=== PATIENT | female | born 1980 | race Hispanic/Latino ===

== ENCOUNTER 2022-07-23 21:10 | Emergency (ER) | payer MEDICAID, OTHER ==
[~2022-07-23] VITALS: Ht 160 cm; Wt 93.9 kg
[2022-07-23] MEDS ORDERED: DEXAMETHASONE SOD PHOSPHATE 4 MG/ML 1ML VIAL IM ONE (22:30)
[2022-07-23] MEDS ORDERED: CEFTRIAXONE 1G VIAL IM ONE (22:30)
[2022-07-23] MEDS ORDERED: KETOROLAC 60 MG VIAL (30MG/ML) IM ONE (22:30)
[2022-07-23] MEDS ORDERED: PSEU120T62 PO (22:49)
[2022-07-23] MEDS ORDERED: IBUP-2070 PO (22:49)
[2022-07-23] MEDS ORDERED: CEFD300C3 PO (22:49)
[2022-07-23] MEDS ORDERED: PHEN118L19 PO (22:49)
[2022-07-23] MEDS ORDERED: IPRA3AMP24 IH (22:49)
[2022-07-23 22:52] VITALS: BP 140/84
== END 2022-07-23 23:00 | disposition home or self-care (01) ==
LOC: EDH 21:10
DX: J02.0 Streptococcal pharyngitis (principal); J20.9 Acute bronchitis, unspecified; E11.9 Type 2 diabetes mellitus without complications; Z20.822 Contact with and (suspected) exposure to COVID-19
CPT/HCPCS: 99284; 87635; 87880; 87804 ×2; 96372; J1100; C9803; J0696; J1885

== ENCOUNTER 2024-07-17 08:55 | Emergency (ER) | payer BC, MEDICAID ==
[~2024-07-17] VITALS: Ht 160 cm; Wt 98.0 kg
[~2024-07-17 08:55] MED LIST: CEFD300C3 PO; IBUP-2070 PO; IPRA3AMP24 IH; PHEN118L19 PO; PSEU120T62 PO
[2024-07-17 09:12] VITALS: BP 132/65; PULSE 84; RESP 20; TEMP 99; O2SAT 98
[2024-07-17 09:19] LABS: RAPID GROUP A STREP negative (NEGATIVE)
[2024-07-17 09:23] LABS: SARS-CoV-2, RNA, NAAT NEGATIVE SARS CoV-2 (NEGATIVE)
[2024-07-17 09:29] LABS: INFLUENZA TYPE A Negative For Type A (NEGATIVE); INFLUENZA TYPE B Negative For Type B (NEGATIVE)
[2024-07-17] MEDS ORDERED: AMOX500C2 PO (09:34)
[2024-07-17] MEDS ORDERED: FLUT16H NS (09:35)
--- NOTE | 2024-07-17 09:35 | ERN ---
General Chief Complaint: Sore Throat Stated Complaint: SORE THROAT Time Seen by MD: 08:57 Source: patient History of Present Illness Initial Comments PATIENT IS A 43-YEAR-OLD FEMALE COMING IN TO BE EVALUATED FOR URI SYMPTOMS. URI SYMPTOMS INCLUDE NASAL CONGESTION SINUS PRESSURE AND SORE THROAT. PATIENT STATES THAT THESE SYMPTOMS BEGAN SEVEN DAYS AGO. Allergies: Coded Allergies: No Known Allergies (Unverified Allergy, Unknown, 07/23/22) Home Meds Active Scripts Ipratropium/Albuterol Sulfate (Iprat-Albut 0.5-3(2.5) mg/3 ml) 3 Ml Ampul.neb, 3 ML IH Q4HPRN PRN for SHORTNESS OF BREATH for 30 Days, #90 VIAL Prov:KAITLIN BUTLER 07/23/22 Phenylephrine/Diphenhydramine (Dimetapp Cold & Congest Liquid) 118 Ml Liquid, 10 ML PO TID for 5 Days, #120 ML Prov:KAITLIN BUTLER 07/23/22 Pseudoephedrine HCl (Sudafed 12 Hour) 120 Mg Tablet.er, 120 MG PO BID for 5 Days, #10 TAB Prov:KAITLIN BUTLER 07/23/22 Ibuprofen (Ibuprofen) 600 Mg Tablet, 600 MG PO Q6H PRN for PAIN, #15 TAB Prov:KAITLIN BUTLER 07/23/22 Cefdinir (Cefdinir) 300 Mg Capsule, 300 MG PO BID for 10 Days, #20 CAP Prov:KAITLIN BUTLER 07/23/22 Past Medical History Past Medical History: Diabetes-Type II, Hypertension Past Surgical History: Tonsillectomy, ROS Dictation CONSTITUTIONAL: NO CHILLS, NO FEVER, NO WEAKNESS, NO DIAPHORESIS, NO MALAISE. HEAD/FACE: NO SIGNS OF TRAUMA. EENT: NO EYE PAIN, NO BLURRED VISION, NO TEARING, NO DOUBLE VISION, NO EAR PAIN, NO EAR DISCHARGE, NO NOSE PAIN, NO NASAL CONGESTION, NO THROAT PAIN, NO THROAT SWELLING, NO MOUTH PAIN. RESPIRATORY: NO COUGH, NO ORTHOPNEA, NO SOB, NO STRIDOR, NO WHEEZING. CARDIOVASCULAR: NO CHEST PAIN, NO EDEMA, NO PALPITATIONS, NO SYNCOPE. GASTROINTESTINAL/ABDOMINAL: NO ABDOMINAL PAIN, NO CONSTIPATION, NO DIARRHEA, NO NAUSEA, NO VOMITING. GENITOURINARY: NO ABNORMAL DISCHARGE, NO DYSURIA, NO FREQUENT URINATION, NO HEMATURIA. NO COMPLAINTS OF PAIN IN THE GENITALS. MUSCULOSKELETAL: NO BACK PAIN, NO GOUT, NO JOINT PAIN, NO JOINT SWELLING, NO MUSCLE PAIN, NO MUSCLE STIFFNESS, NO NECK PAIN. INTEGUMENTARY: NO CHANGE IN COLOR, NO CHANGE IN HAIR/NAILS, NO DRYNESS, NO LESION, NO LUMPS, NO RASH. NEUROLOGICAL/PSYCH: NO ANXIETY, NOT DEPRESSED, NO EMOTIONAL PROBLEM, NO HEADACHE, NO NUMBNESS, NO PRE-EXISTING DEFICIT, NO HISTORY OF SEIZURES, NO TREMORS, NO WEAKNESS. HEMATOLOGIC/LYMPHATIC: NOT ANEMIC, NO HISTORY OF BLOOD CLOTS, NO APPARENT BLEEDING, NO BRUISING, GLANDS NOT SWOLLEN. ALL SYSTEMS NEGATIVE, EXCEPT NOTED. Physical Exam Physical Exam Dictation VITAL SIGNS: REVIEWED. GENERAL APPEARANCE: ALERT, ORIENTED X3, NO ACUTE DISTRESS, OBESE. HEAD AND FACE: NON-TRAUMATIC. EYES: PERRL, PINK CONJUNCTIVAS, EYELID NO TRAUMA, ANTERIOR CHAMBER CLEAR. EARS: PINNAS INTACT AND NO SIGNS OF TRAUMA OR ERYTHEMA. EAR CANALS CLEAR AND NO DISCHARGE. TMS NO ERYTHEMA. NOSE: NO DISCHARGE, NO BLEEDING. OROPHARYNX: MOUTH NORMAL, TEETH NO CARIES, TONGUE PINK. PHARYNX ERYTHEMA. TONSILS NO EXUDATES, NO ABSCESSES NOTED. MUCOUS MEMBRANE MOIST. NECK: SUPPLE, NON-TENDER, NO THYROMEGALY, NO MASSES, NO JVD, NO BRUITS. BREAST: DEFERRED. CHEST: NO TENDERNESS, NO CREPITUS, NO PARADOXICAL MOVEMENT, NO RETRACTIONS. LUNGS: CLEAR, WELL-VENTILATED, SYMMETRIC, NO RALES, NO WHEEZING, NO RHONCHI, NO STRIDOR, GOOD BREATH SOUNDS BILATERALLY. HEART: REGULAR RATE, REGULAR RHYTHM, NO MURMUR, NO GALLOPS. VASCULAR: NO PERIPHERAL EDEMA. ABDOMEN: SOFT, POSITIVE BOWEL SOUNDS, NONDISTENDED, NO GUARDING, NONTENDER, NO REBOUND, NO MASSES NO HEPATOMEGALY, NO SPLENOMEGALY, NO SCHULZ'S SIGN, NO HERNIAS. RECTAL: DEFERRED. GENITAL: DEFERRED. NEUROLOGICAL: NORMAL SPEECH, GROSS MOTOR FUNCTION INTACT, GROSS SENSORY FUNCTION INTACT. MUSCULOSKELETAL: NECK NONTENDER, FULL RANGE OF MOTION, BACK NONTENDER, FULL RANGE OF MOTION. EXTREMITIES: NONTENDER, FULL RANGE OF MOTION. SKIN: COLOR PINK, DRY, NO TURGOR, NO RASH, NO LACERATIONS, NO ABRASIONS, NO CONTUSIONS. LYMPHATICS: DEFERRED. Results Laboratory and Microbiology Lab and Micro Result Laboratory Tests Test 07/17/24 09:00 Influenza Type A Antigen Negative For Type A Influenza Type B Antigen Negative For Type B SARS-CoV-2, RNA, NAAT NEGATIVE SARS CoV-2 Group A Streptococcus Rapid negative (NEGATIVE) Labs Reviewed?: Yes MDM MDM: DIFFERENTIAL DIAGNOSIS: PHARYNGITIS, SINUSITIS, COVID, FLU PATIENT IS A 43-YEAR-OLD FEMALE COMING IN TO BE EVALUATED FOR URI SYMPTOMS. SWABS WERE ALL NEGATIVE BUT ON PHYSICAL EXAM OROPHARYNGEAL ERYTHEMA WAS NOTICED. PATIENT WILL BE DISCHARGED WITH A DIAGNOSIS OF STREP PHARYNGITIS. ANTIBIOTICS WILL BE PROVIDED WELL SYMPTOMATIC MEDICATION. ED Course Orders Procedure Category Date Status Time Rapid (Group A Strep) LAB 07/17/24 Complete 08:59 Covid Rna Naat LAB 07/17/24 Complete 08:59 Influenza Type A & B, LAB 07/17/24 Complete Rapid 08:59 Acetaminophen 500mg PHA 07/17/24 Complete Tab (Tylenol 500mg T 09:00 Current Medications Medications (Trade) Dose Ordered Sig/Erik Route PRN Reason Start Time Stop Time Status Last Admin Dose Admin Acetaminophen (TYLenol 500MG TAB) 1,000 mg ONCE ONCE PO 07/17/24 09:00 07/17/24 09:07 DC Vital Signs Date Time Temp Pulse Resp B/P (MAP) Pulse Ox O2 Delivery O2 Flow Rate FiO2 07/17/24 09:12 99.0 84 20 132/65 98 Room Air* 0 21 07/17/24 08:57 97.5 95 18 138/89 97 Room Air 0 DX & DISP Disposition: Discharge Departure Impression: Primary Impression: Sinusitis Condition: Stable Scripts Fluticasone Propionate (Flonase Nasal [place]) 50 Mcg/Actuation [place] 2 SPRAY NS DAILY, #16 GM 0 Refills Prov: LEILANI LUTZ MD 07/17/24 Amoxicillin (Amoxicillin) 500 Mg Capsule 1 CAP PO TID for 10 Days, #30 CAP 0 Refills Prov: LEILANI LUTZ MD 07/17/24 Additional Instructions: FOLLOW-UP WITH PRIMARY CARE PROVIDER IN 1 TO 2 DAYS. TAKE MEDICATIONS DIRECTED HERE IN THE EMERGENCY ROOM. OKAY TO CONTINUE HOME MEDICATIONS UNLESS OTHERWISE DISCUSSED DURING YOUR VISIT IN THE EMERGENCY ROOM TODAY. RETURN TO YOUR NEAREST EMERGENCY ROOM IF SYMPTOMS WORSEN OR IF THERE IS NO IMPROVEMENT. CALL 911 IF YOU NEED IMMEDIATE ASSISTANCE. TAKE TYLENOL [id number] NEEDED AND IF NO CONTRAINDICATIONS ARE PRESENT. INCREASE ORAL HYDRATION. A WOUND CULTURE OR URINE CULTURE WAS ORDERED HERE IN THE EMERGENCY ROOM DEPARTMENT PLEASE FOLLOW-UP WITH PRIMARY CARE PROVIDER AND ADVISE THEM TO GET REPEAT PORTS FROM OUR FACILITY. IF YOU HAD ANY MAYE WRAP/SPLINTS THAT WERE APPLIED HERE, PLEA SE DO NOT REMOVE THEM UNTIL YOU SEE YOUR PRIMARY CARE OR SPECIALTY. REFERRALS: Referrals: ELMIRA BOWEN (PCP) Time of Disposition: 09:34 LEILANI LUTZ MD Jul 17, 2024 09:35
[2024-07-17] MEDS: acetaMINOPHEN 500 MG TABLET PO ONE (09:36)
== END 2024-07-17 09:43 | disposition home or self-care (01) ==
LOC: EDH 08:55
DX: J32.9 Chronic sinusitis, unspecified (principal); E11.9 Type 2 diabetes mellitus without complications; I10 Essential (primary) hypertension; Z20.822 Contact with and (suspected) exposure to COVID-19; Z79.899 Other long term (current) drug therapy; Z90.89 Acquired absence of other organs; Z98.890 Other specified postprocedural states
CPT/HCPCS: 87635; 87804; 87880; 99283